=== PATIENT | female | born 1990 | race African-American/Black ===

== ENCOUNTER 2017-10-04 02:16 | Emergency (ER) | payer OTHER ==
[~2017-10-04] VITALS: Ht 170.2 cm; Wt 71.7 kg
[2017-10-04 02:22] VITALS: BP 115/52
--- NOTE | 2017-10-04 03:48 | NUR ---
EKG TO BE DONE IN TRIAGE ROOM
[2017-10-04] MEDS ORDERED: IBUPROFEN 400 MG TABLET PO ONE (04:30)
== END 2017-10-04 04:22 | disposition home or self-care (01) ==
LOC: ER 02:18
DX: M62.830 Muscle spasm of back (principal)
CPT/HCPCS: 99283; A4606; Z7610

== ENCOUNTER 2018-05-07 23:00 | Emergency (ER) | payer OTHER ==
[~2018-05-07] VITALS: Ht 167.6 cm; Wt 71.7 kg
[2018-05-07 23:00] VITALS: BP 123/74
== END 2018-05-07 23:48 | disposition home or self-care (01) ==
LOC: ER 23:05
DX: N92.0 Excessive and frequent menstruation with regular cycle (principal); R01.1 Cardiac murmur, unspecified
CPT/HCPCS: 99283; A4606; Z7610

== ENCOUNTER 2019-06-12 12:25 | Emergency (ER) | payer OTHER ==
[~2019-06-12] VITALS: Ht 170.2 cm; Wt 64.9 kg
[2019-06-12 12:28] VITALS: BP 129/75
== END 2019-06-12 13:13 | disposition home or self-care (01) ==
LOC: ER 12:27
DX: B34.9 Viral infection, unspecified (principal)

== ENCOUNTER 2019-08-01 13:55 | Emergency (ER) | payer OTHER ==
--- NOTE | 2019-08-01 13:55 | NUR ---
PT CALLED TO TRIAGE, PT NOT IN WAITING ROOM
--- NOTE | 2019-08-01 14:15 | NUR ---
CALLED TO TRIAGE,NO ANSWER
== END 2019-08-01 14:15 | disposition left against medical advice (07) ==
LOC: ER 14:00
DX: R06.02 Shortness of breath (principal); Z53.21 Procedure and treatment not carried out due to patient leaving prior to being seen by health care provider

== ENCOUNTER 2019-08-01 19:43 | Emergency (ER) | payer OTHER ==
[~2019-08-01] VITALS: Ht 170.2 cm; Wt 63.5 kg
[2019-08-01 19:43] VITALS: BP 104/63
--- NOTE | 2019-08-01 20:30 | NUR ---
URINE SAMPLE COLLECTED AND SENT TO LAB.
--- NOTE | 2019-08-01 20:38 | NUR ---
C/O SINUS PRESSURE, BILATERAL EAR PAIN X9 DAYS. SOB & GEN BODY PAIN X1 DAY
== END 2019-08-01 21:21 | disposition home or self-care (01) ==
LOC: ER 19:44
DX: J06.9 Acute upper respiratory infection, unspecified (principal); Z88.8 Allergy status to other drugs, medicaments and biological substances; Z60.2 Problems related to living alone

== ENCOUNTER 2019-08-06 18:50 | Emergency (ER) | payer OTHER ==
[~2019-08-06] VITALS: Ht 170.2 cm; Wt 63.5 kg
[2019-08-06 19:43] VITALS: BP 120/72
[2019-08-06] MEDS ORDERED: ACETAMINOPHEN 325 MG TABLET PO ONE (21:30)
[2019-08-06] MEDS ORDERED: ACETAMINOPHEN ES 500 MG TABLET ONE (21:34)
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
== END 2019-08-06 22:48 | disposition home or self-care (01) ==
LOC: ER 18:52
DX: S63.696A Other sprain of right little finger, initial encounter (principal); Z88.8 Allergy status to other drugs, medicaments and biological substances; Z60.2 Problems related to living alone; W01.0XXA Fall on same level from slipping, tripping and stumbling without subsequent striking against object, initial encounter; Y93.89 Activity, other specified; Y92.89 Other specified places as the place of occurrence of the external cause; Y99.8 Other external cause status
CPT/HCPCS: 73130-TC

== ENCOUNTER 2020-03-09 09:06 | Emergency (ER) | payer OTHER ==
[~2020-03-09] VITALS: Ht 170.2 cm; Wt 64.9 kg
--- NOTE | 2020-03-09 09:35 | NUR ---
Seen and evaluated by dr. avery
--- NOTE | 2020-03-09 10:20 | NUR ---
PATIENT CAME BACK FROM CT
--- NOTE | 2020-03-09 11:02 | NUR ---
Patient discharged to home in stable condition. Written and verbal after care instructions given. Patient verbalizes understanding of instruction.
[2020-03-09 11:03] VITALS: BP 137/86
== END 2020-03-09 11:03 | disposition home or self-care (01) ==
LOC: ER 09:11
DX: S00.33XA Contusion of nose, initial encounter (principal); R51.9 Headache, unspecified; Z88.8 Allergy status to other drugs, medicaments and biological substances; Z60.2 Problems related to living alone; W22.8XXA Striking against or struck by other objects, initial encounter; Y93.89 Activity, other specified; Y92.89 Other specified places as the place of occurrence of the external cause; Y99.8 Other external cause status
CPT/HCPCS: 70450-TC; 70486-TC; 84703-TC

== ENCOUNTER 2020-07-13 07:06 | Emergency (ER) | payer OTHER ==
[~2020-07-13] VITALS: Ht 170.2 cm; Wt 63.5 kg
[2020-07-13 08:05] LABS: BASOPHILS % (AUTO) 0.3 % (0.0-2.0); HEMATOCRIT 42 % (33-45); HEMOGLOBIN 13.7 g/dL (11.5-14.8); LYMPHOCYTES % (AUTO) 32.1 % (20.0-44.0); MEAN CORPUSCULAR HGB CONC 33 g/dl (31.0-36.0); MEAN CORPUSCULAR VOLUME 91 fL (82-100); MONOCYTES # (AUTO) 0.5 /CMM (0.1-1.30); MONOCYTES % (AUTO) 7.5 % (2.0-12.0); NEUTROPHILS # (AUTO) 3.5 /CMM (1.8-8.9); NEUTROPHILS % (AUTO) 57.1 % (43.0-81.0); PLATELET COUNT (AUTO) 222 /CMM (150-450); RED BLOOD CELL COUNT(AUTO) 4.65 MIL/uL (4.0-5.2); WHITE BLOOD COUNT (AUTO) 6.2 K/uL (4.3-11.0)
[2020-07-13 08:23] LABS: COLOR,URINE YELLOW (YELLOW); PROTEIN,URINE NEGATIVE (NEGATIVE); UGLUCOSE NEGATIVE (NEGATIVE)
[2020-07-13 08:24] LABS: BACTERIA,URINE Few /HPF (None Seen); BILIRUBIN,URINE NEGATIVE (NEGATIVE); LEUKOCYTE ESTERASE ,URINE NEGATIVE (NEGATIVE); NITRITE, URINE NEGATIVE (NEGATIVE); SQUAMOUS EPITHELIAL CELL,UR Few /HPF (None Seen); UROBILINOGEN,URINE 0.2 EU/dL (0.2); WBC,URINE 0-2 /HPF (0-3)
[2020-07-13 08:39] LABS: CREATININE 0.9 mg/dL (0.6-1.3)
[2020-07-13 08:44] LABS: BILIRUBIN,DIRECT 0.1 mg/dL (0.0-0.2); BILIRUBIN,TOTAL 0.8 mg/dL (0.2-1.0)
[2020-07-13 09:04] VITALS: BP 120/70
== END 2020-07-13 09:05 | disposition home or self-care (01) ==
LOC: ER 07:09
DX: R10.32 Left lower quadrant pain (principal); R11.0 Nausea; N89.8 Other specified noninflammatory disorders of vagina; Z87.440 Personal history of urinary (tract) infections; Z88.8 Allergy status to other drugs, medicaments and biological substances; Z60.2 Problems related to living alone
CPT/HCPCS: 36415; 80048-TC; 80076-TC; 81001; 83690-TC; 84703-TC; 85025-TC; 87070-TC; 87081-TC; 87210-TC; 87491; 87591

== ENCOUNTER 2021-07-14 08:03 | Emergency (ER) | payer OTHER ==
[~2021-07-14] VITALS: Ht 170.2 cm; Wt 65.8 kg
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
[2021-07-14] MEDS ORDERED: IBUPROFEN 400 MG TABLET PO ONE (08:30)
[2021-07-14] MEDS ORDERED: IBUPROFEN 400 MG TABLET ONE ×2 (08:34→08:36)
--- NOTE | 2021-07-14 08:45 | NUR ---
URINE COLLECTED AND SENT TO LAB
--- NOTE | 2021-07-14 08:50 | NUR ---
TRIAL [facility]GR AT BEDSIDE
--- NOTE | 2021-07-14 09:56 | NUR ---
Patient discharged to home in stable condition. Written and verbal after care instructions given. Patient verbalizes understanding of instruction.
[2021-07-14 09:57] VITALS: BP 122/68
== END 2021-07-14 10:00 | disposition home or self-care (01) ==
LOC: ER 08:05
DX: S24.109A Unspecified injury at unspecified level of thoracic spinal cord, initial encounter (principal); S34.109A Unspecified injury to unspecified level of lumbar spinal cord, initial encounter; S29.9XXA Unspecified injury of thorax, initial encounter; R07.81 Pleurodynia; R01.1 Cardiac murmur, unspecified; Z88.8 Allergy status to other drugs, medicaments and biological substances; Z60.2 Problems related to living alone; V89.2XXA Person injured in unspecified motor-vehicle accident, traffic, initial encounter; Y93.89 Activity, other specified; Y92.89 Other specified places as the place of occurrence of the external cause; Y99.8 Other external cause status
CPT/HCPCS: 71045-TC; 72074-TC; 72110-TC; 84703-TC